=== PATIENT | male | born 1965 | race Hispanic/Latino ===

== ENCOUNTER 2019-01-11 23:19 | Emergency (ER) | payer OTHER ==
[~2019-01-11] VITALS: Ht 177.8 cm; Wt 95.3 kg
[2019-01-11] MEDS ORDERED: SODIUM CHLORIDE 0.9% 1000ML 2,000 ML ONE (23:39)
[2019-01-11] MEDS ORDERED: LORAZEPAM INJ 2 MG/ML VIAL ONE (23:39)
[2019-01-11] MEDS ORDERED: ONDANSETRON HCL INJ 2MG/ML 2ML 2 MG/ML VIAL ONE (23:39)
[2019-01-11] MEDS ORDERED: FAMOTIDINE 20 MG/2 ML VIAL IV STA (23:58)
[2019-01-12] MEDS ORDERED: ONDANSETRON HCL INJ 2MG/ML 2ML 2 MG/ML VIAL IV STA (00:07)
[2019-01-12] MEDS ORDERED: SODIUM CHLORIDE 0.9% 100 ML 100 ML IV ONE ×2 (00:15→03:30)
[2019-01-12] MEDS ORDERED: LORAZEPAM INJ 2 MG/ML VIAL IV ONE ×2 (00:15→03:30)
[2019-01-12] MEDS ORDERED: SODIUM CHLORIDE 0.9% 1000ML 1,000 ML IV ONE (00:15)
[2019-01-12] MEDS ORDERED: POTASSIUM CHLORIDE 20 MEQ TAB CR PO STA (01:08)
--- NOTE | 2019-01-12 01:26 | NUR ---
no nausea,vomiting or diarrhea noted at this time. pt resting in room with at bedside.
--- NOTE | 2019-01-12 02:25 | NUR ---
pr placed on engine monitor. at bedside pt denies CP, SOB. no vomiting noted.
--- NOTE | 2019-01-12 02:39 | Diagnostic Imaging Report ---
EXAM: Right Upper Quadrant Ultrasound INDICATION: Right upper quadrant pain. Binge drinking. COMPARISON: None. TECHNIQUE: Transverse and longitudinal images of the right upper abdomen were obtained. FINDINGS: Liver: Size: 20.2 cm in the right midclavicular line, normal Appearance: Increased echogenicity, smooth contour Mass: No focal masses Gallbladder: The gallbladder is mildly hydropic. Stones/Sludge: Small volume sludge. Wall: 0.4 cm, mildly thickened Appearance: No wall thickening, pericholecystic fluid or hydrops. Sonographic Swanson's Sign: Negative Bile Ducts: Intrahepatic Ducts: No dilatation Extrahepatic Ducts: Common bile duct measures 0.7 cm, mildly prominent. Pancreas: Visualized portions of the pancreatic head, neck and proximal body are normal. Kidneys: Length: Right 11.2 cm Echogenicity: Normal Collecting System: No hydronephrosis Stone: None Cyst/Mass: None Vessels: Aorta: Visualized portions are normal Inferior Vena Cava: Visualized portions are normal Main Portal Vein: 1.2 cm, normal size with hepatopetal flow. Free Fluid: No ascites or pleural effusion IMPRESSION: 1. Hydropic gallbladder with mild diffuse wall thickening, and sludge. Findings are nonspecific, however, could reflect cholecystitis in the proper clinical setting (Negative sonographic Swanson's sign). 2. Hepatomegaly and hepatic steatosis. Signed by: Dr. Cata Jose M.D. on 01/12/2019 2:36 AM
[2019-01-12] MEDS ORDERED: THIAMINE HCL INJ 100 MG/ML 2ML VIAL IV ONE (03:15)
[2019-01-12] MEDS ORDERED: THIAMINE HCL INJ 100 MG/ML 2ML VIAL ONE (03:18)
[2019-01-12] MEDS ORDERED: DILTIAZEM HCL 5 MG/ML 5 ML VIAL IV STA (03:32)
[2019-01-12] MEDS ORDERED: MAGNESIUM SULFATE 2GM/50ML 50 ML IV ONE ×2 (03:33→04:30)
[2019-01-12] MEDS ORDERED: SODIUM CHLORIDE 0.9% 1000ML 1,000 ML ONE (03:33)
--- NOTE | 2019-01-12 03:35 | NUR ---
Mag 2gm nfusing at 100cc/hr verbal order from Dr Jo.
[2019-01-12] MEDS ORDERED: DILTIAZEM HCL 125 ML IV SCH (03:45)
[2019-01-12] MEDS ORDERED: NICARDIPINE 20MG/200ML PREMIX 0 ML ONE (03:57)
[2019-01-12] MEDS ORDERED: DILTIAZEM HCL VIAL 5 ML ONE (03:57)
[2019-01-12] MEDS ORDERED: DILTIAZEM HCL ONE (04:01)
[2019-01-12] MEDS ORDERED: SODIUM CHLORIDE 0.9% 100 ML 100 ML ONE (04:02)
[2019-01-12] MEDS ORDERED: LORAZEPAM INJ 2 MG/ML VIAL ONE (04:24)
--- NOTE | 2019-01-12 04:33 | NUR ---
[facility] notified of emergency transfer, ETA 30 minutes
--- NOTE | 2019-01-12 04:40 | Diagnostic Imaging Report ---
EXAMINATION: CXR 1 VIEW - HOPD INDICATION: Tachycardia. COMPARISON: None FINDINGS: TUBES and LINES: None. LUNGS: Lungs are well inflated. Mild patchy density in the right lower lobe may represent atelectasis. There is no evidence of pneumonia or pulmonary edema. PLEURA: No pleural effusion or pneumothorax. HEART AND MEDIASTINUM: The cardiomediastinal silhouette is unremarkable. BONES AND SOFT TISSUES: No acute osseous lesion. UPPER ABDOMEN: No free air under the diaphragm. IMPRESSION: Right basilar atelectasis. Signed by: Dr. Cata Jose M.D. on 01/12/2019 4:37 AM
--- NOTE | 2019-01-12 05:30 | NUR ---
report to EMS. pt stable at time of transfer. MOT and packet given to EMS, MOT and FS faxed to transfer center and [facility].
[2019-01-12 06:09] VITALS: BP 110/72
== END 2019-01-12 06:29 | disposition other institution (70) ==
LOC: FSED 23:19
DX: K70.30 Alcoholic cirrhosis of liver without ascites (principal); E87.6 Hypokalemia; K52.9 Noninfective gastroenteritis and colitis, unspecified; E87.1 Hypo-osmolality and hyponatremia; I48.91 Unspecified atrial fibrillation; F17.210 Nicotine dependence, cigarettes, uncomplicated
CPT/HCPCS: 71045; 76705; 80048; 80053; 80076; 81003; 83880; 84484; 85025; 93005; 96365; 96374; 96375; 99284; J2060; J2405; J3411; J3475; J7030

== ENCOUNTER 2019-04-19 02:19 | Emergency (ER) | payer OTHER ==
[~2019-04-19] VITALS: Ht 177.8 cm; Wt 95.3 kg
--- OUTSIDE RECORDS SUMMARY | 2019-04-19 02:22 | XMS REPORT ---
Author Author [facility] Address Unknown Phone Unavailable Care Team Providers Care Supply Chain Planner Name Role Phone ELIZABETH RAMIREZ Unavailable Unavailable Didi STODDARD Unavailable Unavailable Problems This patient has no known problems. Allergies, Adverse Reactions, Alerts This patient has no known allergies or adverse reactions. Medications This patient has no known medications. Results Test Description Test Time Test Comments Text Results Atomic Results Result Comments POCT-GLUCOSE METER 2019-01-17 11:38:00 POC-GLUCOSE METER (BEAKER) (test acyq=1430) 152 mg/dL 70-110 TESTED AT [facility] [address] [facility] [address] [address] [id number] 10:46:00* Test Item Value Reference Range Comments PARTIAL THROMBOPLASTIN TIME (BEAKER) (test ofok=376) 73.4 seconds 22.5-36.0 CBC W/PLT COUNT & AUTO [id number] 08:41:00* Test Item Value Reference Range Comments WHITE BLOOD CELL COUNT (BEAKER) (test lafj=783) 7.4 K/ L 3.5-10.5 RED BLOOD CELL COUNT (BEAKER) (test nwxt=847) 3.71 M/ L 4.63-6.08 HEMOGLOBIN (BEAKER) (test syuw=320) 11.1 GM/DL 13.7-17.5 HEMATOCRIT (BEAKER) (test btnz=964) 30.7 % 40.1-51.0 MEAN CORPUSCULAR VOLUME (BEAKER) (test kyzn=912) 82.7 fL 79.0-92.2 MEAN CORPUSCULAR HEMOGLOBIN (BEAKER) (test yrof=062) 29.9 pg 25.7-32.2 MEAN CORPUSCULAR HEMOGLOBIN CONC (BEAKER) (test khss=038) 36.2 GM/DL 32.3-36.5 RED CELL DISTRIBUTION WIDTH (BEAKER) (test osuu=820) 20.2 % 11.6-14.4 PLATELET COUNT (BEAKER) (test xjov=959) 120 K/CU MM 150-450 MEAN PLATELET VOLUME (BEAKER) (test inzc=593) 10.1 fL 9.4-12.4 NUCLEATED RED BLOOD CELLS (BEAKER) (test fbir=652) 1 /100 WBC 0-0 (CELLAVISION MANUAL DIFF)2019-01-17 08:41:00* Test Item Value Reference Range Comments NEUTROPHILS - REL (CELLAVISION)(BEAKER) (test xfxx=9127) 70 % LYMPHOCYTES - REL (CELLAVISION)(BEAKER) (test bofp=6849) 16 % MONOCYTES - REL (CELLAVISION)(BEAKER) (test jerz=3759) 10 % EOSINOPHILS - REL (CELLAVISION)(BEAKER) (test vqjo=1172) 1 % METAMYELOCYTES - REL (CELLAVISION)(BEAKER) (test sdyb=1865) 1 % 0-0 PROMYELOCYTES - REL (CELLAVSION)(BEAKER) (test dttk=5881) 1 % 0-0 BANDS - REL (CELLAVISION)(BEAKER) (test lyyl=4264) 1 % 0-10 NEUTROPHILS - ABS (CELLAVISION)(BEAKER) (test htzi=7394) 5.18 K/ul 1.78-5.38 LYMPHOCYTES - ABS (CELLAVISION)(BEAKER) (test cbjb=2624) 1.18 K/ul 1.32-3.57 MONOCYTES - ABS (CELLAVISION)(BEAKER) (test gakn=1503) 0.74 K/uL 0.30-0.82 EOSINOPHILS - ABS (CELLAVISION)(BEAKER) (test evwh=4442) 0.07 K/uL 0.04-0.54 METAMYELOCYTES - ABS (CELLAVISION)(BEAKER) (test ppmr=5658) 0.07 K/uL 0.00-0.00 PROMYELOCYTES - ABS (CELLAVISION)(BEAKER) (test stqf=3738) 0.07 K/uL 0.00-0.00 BANDS - ABS (CELLAVISION)(BEAKER) (test iosw=6120) 0.07 K/uL 0.00-0.80 TOTAL COUNTED (BEAKER) (test unjn=2454) 100 SMUDGE CELLS (BEAKER) (test ojmn=5887) Present GIANT PLATELETS (BEAKER) (test ynra=313) Present POLYCHROMATOPHILLIC RBCS(BEAKER) (test lfrx=720) 1+ few ANISOCYTOSIS (BEAKER) (test ozoa=780) 2+ moderate MACROCYTES (BEAKER) (test jfzp=551) 2+ moderate TARGET CELLS (BEAKER) (test aeju=085) 1+ few PLATELET CONCENTRATION (CELLAVISION)(BEAKER) (test ohxy=1355) Decreased Received comment: User comments: Slide comments: POCT-GLUCOSE [id number] 06:19:00* Test Item Value Reference Range Comments POC-GLUCOSE METER (BEAKER) (test feil=3886) 193 mg/dL 70-110 TESTED AT [facility] [address] [place] [address] [id number] 04:55:00* Test Item Value Reference Range Comments MAGNESIUM (BEAKER) (test unvs=890) 2.1 mg/dL 1.6-2.6 Specimen slightly hemolyzed [id number] 04:55:00* Test Item Value Reference Range Comments PHOSPHORUS (BEAKER) (test ozas=213) 1.8 mg/dL 2.3-4.7 Specimen slightly hemolyzed COMPREHENSIVE METABOLIC [id number] 04:55:00* Test Item Value Reference Range Comments TOTAL PROTEIN (BEAKER) (test caca=633) 5.9 gm/dL 6.0-8.3 Specimen slightly hemolyzed ALBUMIN (BEAKER) (test zdjh=2187) 2.5 g/dL 3.5-5.0 Specimen slightly hemolyzed ALKALINE PHOSPHATASE (BEAKER) (test mspm=932) 370 U/L 40-150 BILIRUBIN TOTAL (BEAKER) (test toqi=959) 14.4 mg/dL 0.2-1.2 Specimen slightly hemolyzed SODIUM (BEAKER) (test gtzv=394) 138 meq/L 136-145 POTASSIUM (BEAKER) (test gzyq=697) 4.1 meq/L 3.5-5.1 Specimen slightly hemolyzed CHLORIDE (BEAKER) (test zkdc=898) 106 meq/L 98-107 CO2 (BEAKER) (test cibb=068) 24 meq/L 22-29 BLOOD UREA NITROGEN (BEAKER) (test ipgc=705) 3 mg/dL 7-21 CREATININE (BEAKER) (test wjuz=645) 0.71 mg/dL 0.57-1.25 Specimen slightly hemolyzed GLUCOSE RANDOM (BEAKER) (test flsf=231) 135 mg/dL 70-105 CALCIUM (BEAKER) (test orqk=579) 8.1 mg/dL 8.4-10.2 AST (SGOT) (BEAKER) (test ctjv=935) 99 U/L 5-34 Specimen slightly hemolyzed ALT (SGPT) (BEAKER) (test xrnw=724) 68 U/L 6-55 Specimen slightly hemolyzed EGFR (BEAKER) (test esmv=2389) 117 mL/min/1.73 sq m ESTIMATED GFR IS NOT ACCURATE CREATININE CLEARANCE IN PREDICTING GLOMERULAR FILTRATION RATE. ESTIMATED GFR IS NOT APPLICABLE FOR DIALYSIS PATIENTS. Specimen markedly [id number] 04:55:00* Test Item Value Reference Range Comments AMYLASE (BEAKER) (test tazj=217) 187 U/L 25-125 Specimen slightly hemolyzed Specimen markedly [id number] 04:55:00* Test Item Value Reference Range Comments LIPASE (BEAKER) (test byqq=441) 249 U/L 8-78 Specimen markedly [id number] 04:41:00* Test Item Value Reference Range Comments PARTIAL THROMBOPLASTIN TIME (BEAKER) (test deni=352) 68.9 seconds 22.5-36.0 [id number] 21:11:00* Test Item Value Reference Range Comments PARTIAL THROMBOPLASTIN TIME (BEAKER) (test eyhy=498) 56.6 seconds 22.5-36.0 POCT-GLUCOSE [id number] 17:33:00* Test Item Value Reference Range Comments POC-GLUCOSE METER (BEAKER) (test ksur=7671) 164 mg/dL 70-110 TESTED AT [facility] [address] [address] [id number] 14:01:00* Test Item Value Reference Range Comments PARTIAL THROMBOPLASTIN TIME (BEAKER) (test wvgj=497) 59.0 seconds 22.5-36.0 POCT-GLUCOSE [id number] 12:26:00* Test Item Value Reference Range Comments POC-GLUCOSE METER (BEAKER) (test qato=4247) 187 mg/dL 70-110 TESTED AT [facility] [address] [facility] [facility] [address] [id number] 07:58:00* Test Item Value Reference Range Comments MAGNESIUM (BEAKER) (test kpbv=451) 2.1 mg/dL 1.6-2.6 Specimen slightly hemolyzed [id number] 07:58:00* Test Item Value Reference Range Comments PHOSPHORUS (BEAKER) (test rgyo=272) 1.7 mg/dL 2.3-4.7 Specimen slightly hemolyzed COMPREHENSIVE METABOLIC [id number] 07:58:00* Test Item Value Reference Range Comments TOTAL PROTEIN (BEAKER) (test svql=750) 5.8 gm/dL 6.0-8.3 Specimen slightly hemolyzed ALBUMIN (BEAKER) (test tixb=3832) 2.5 g/dL 3.5-5.0 Specimen slightly hemolyzed ALKALINE PHOSPHATASE (BEAKER) (test ikvn=093) 391 U/L 40-150 BILIRUBIN TOTAL (BEAKER) (test kzso=573) 18.4 mg/dL 0.2-1.2 Specimen slightly hemolyzed SODIUM (BEAKER) (test fyvm=851) 135 meq/L 136-145 POTASSIUM (BEAKER) (test iras=167) 4.1 meq/L 3.5-5.1 Specimen slightly hemolyzed CHLORIDE (BEAKER) (test wkbb=281) 105 meq/L 98-107 CO2 (BEAKER) (test wlwy=099) 22 meq/L 22-29 BLOOD UREA NITROGEN (BEAKER) (test uana=608) 5 mg/dL 7-21 CREATININE (BEAKER) (test vdnn=041) 0.70 mg/dL 0.57-1.25 Specimen slightly hemolyzed GLUCOSE RANDOM (BEAKER) (test mxwq=983) 172 mg/dL 70-105 CALCIUM (BEAKER) (test rzzq=519) 8.0 mg/dL 8.4-10.2 AST (SGOT) (BEAKER) (test gleu=666) 134 U/L 5-34 Specimen slightly hemolyzed ALT (SGPT) (BEAKER) (test zite=236) 76 U/L 6-55 Specimen slightly hemolyzed EGFR (BEAKER) (test jqew=7922) 119 mL/min/1.73 sq m ESTIMATED GFR IS NOT ACCURATE CREATININE CLEARANCE IN PREDICTING GLOMERULAR FILTRATION RATE. ESTIMATED GFR IS NOT APPLICABLE FOR DIALYSIS PATIENTS. Specimen markedly [id number] 07:58:00* Test Item Value Reference Range Comments AMYLASE (BEAKER) (test bqqp=076) 165 U/L 25-125 Specimen slightly hemolyzed Specimen markedly [id number] 07:58:00* Test Item Value Reference Range Comments LIPASE (BEAKER) (test ytap=321) 230 U/L 8-78 Specimen markedly ictericPOCT-GLUCOSE [id number] 07:55:00* Test Item Value Reference Range Comments POC-GLUCOSE METER (BEAKER) (test bfbb=0070) 191 mg/dL 70-110 TESTED AT [facility] [address] [facility] [address] CBC W/PLT COUNT & AUTO [id number] 07:44:00* Test Item Value Reference Range Comments WHITE BLOOD CELL COUNT (BEAKER) (test mgsc=535) 6.0 K/ L 3.5-10.5 RED BLOOD CELL COUNT (BEAKER) (test ynrm=595) 3.88 M/ L 4.63-6.08 HEMOGLOBIN (BEAKER) (test ecwl=438) 11.2 GM/DL 13.7-17.5 HEMATOCRIT (BEAKER) (test kpao=862) 32.0 % 40.1-51.0 MEAN CORPUSCULAR VOLUME (BEAKER) (test usps=017) 82.5 fL 79.0-92.2 MEAN CORPUSCULAR HEMOGLOBIN (BEAKER) (test ugce=754) 28.9 pg 25.7-32.2 MEAN CORPUSCULAR HEMOGLOBIN CONC (BEAKER) (test wtku=586) 35.0 GM/DL 32.3-36.5 RED CELL DISTRIBUTION WIDTH (BEAKER) (test iruc=460) 19.6 % 11.6-14.4 PLATELET COUNT (BEAKER) (test xwdy=557) 83 K/CU MM 150-450 MEAN PLATELET VOLUME (BEAKER) (test apqm=605) 10.5 fL 9.4-12.4 NUCLEATED RED BLOOD CELLS (BEAKER) (test qcax=821) 1 /100 WBC 0-0 NEUTROPHILS RELATIVE PERCENT (BEAKER) (test uoop=382) 74 % LYMPHOCYTES RELATIVE PERCENT (BEAKER) (test lsfm=595) 14 % MONOCYTES RELATIVE PERCENT (BEAKER) (test ipwm=400) 7 % EOSINOPHILS RELATIVE PERCENT (BEAKER) (test sxqf=627) 0 % BASOPHILS RELATIVE PERCENT (BEAKER) (test wrnp=180) 1 % NEUTROPHILS ABSOLUTE COUNT (BEAKER) (test taxb=919) 4.40 K/ L 1.78-5.38 LYMPHOCYTES ABSOLUTE COUNT (BEAKER) (test ilzl=454) 0.83 K/ L 1.32-3.57 MONOCYTES ABSOLUTE COUNT (BEAKER) (test upgc=278) 0.39 K/ L 0.30-0.82 EOSINOPHILS ABSOLUTE COUNT (BEAKER) (test ntpz=874) 0.01 K/ L 0.04-0.54 BASOPHILS ABSOLUTE COUNT (BEAKER) (test ngpl=494) 0.03 K/ L 0.01-0.08 IMMATURE GRANULOCYTES-RELATIVE PERCENT (BEAKER) (test kcsj=7685) 5 % 0-1 [id number] 07:12:00* Test Item Value Reference Range Comments PARTIAL THROMBOPLASTIN TIME (BEAKER) (test bses=452) 33.8 seconds 22.5-36.0 6 hours after starting heparin infusion and as indicated per sliding scale PLATELET [id number] 06:51:00* Test Item Value Reference Range Comments PLATELET COUNT (BEAKER) (test lwcx=850) 83 K/CU MM 150-450 [place], [id number] 20:05:00Intra-op imagingReason for exam:->direct hyperbilirubinemiaFINAL REPORT Fluoroscopy, less than 1 hour History:ERCP Comparison: none Findings:Fluoroscopic assistance was provided during ERCP. Fluoroscopic images taken were interpreted by the referring clinician. Please see separate procedure note for full details. Total Fluoroscopy time: 63.1 seconds Number of fluoroscopic images obtained: Two Impression:Fluoroscopy assistance as described above. Signed: Coy Glaser MDReport Verified Date/Time: 01/15/2019 20:05:50 Reading Location: [facility] Reading Room [id number] 09:50:00* Test Item Value Reference Range Comments MAGNESIUM (BEAKER) (test kijt=653) 2.0 mg/dL 1.6-2.6 Specimen slightly hemolyzed [id number] 09:50:00* Test Item Value Reference Range Comments PHOSPHORUS (BEAKER) (test tekw=297) 1.8 mg/dL 2.3-4.7 Specimen slightly hemolyzed POCT-GLUCOSE [id number] 06:44:00* Test Item Value Reference Range Comments POC-GLUCOSE METER (BEAKER) (test pobk=2787) 104 mg/dL 70-110 TESTED AT [facility] [address] [facility] [address] BASIC METABOLIC [id number] 04:31:00* Test Item Value Reference Range Comments SODIUM (BEAKER) (test aypd=732) 132 meq/L 136-145 POTASSIUM (BEAKER) (test zjoc=294) 3.7 meq/L 3.5-5.1 Specimen slightly hemolyzed CHLORIDE (BEAKER) (test gqrm=129) 102 meq/L 98-107 CO2 (BEAKER) (test sunn=218) 22 meq/L 22-29 BLOOD UREA NITROGEN (BEAKER) (test erop=588) 5 mg/dL 7-21 CREATININE (BEAKER) (test snmv=658) 0.70 mg/dL 0.57-1.25 Specimen slightly hemolyzed GLUCOSE RANDOM (BEAKER) (test lovk=056) 99 mg/dL 70-105 CALCIUM (BEAKER) (test phhj=601) 7.4 mg/dL 8.4-10.2 EGFR (BEAKER) (test wagn=9525) 119 mL/min/1.73 sq m ESTIMATED GFR IS NOT ACCURATE CREATININE CLEARANCE IN PREDICTING GLOMERULAR FILTRATION RATE. ESTIMATED GFR IS NOT APPLICABLE FOR DIALYSIS PATIENTS. Specimen markedly [id number] 04:29:00* Test Item Value Reference Range Comments AMYLASE (BEAKER) (test syxg=334) 186 U/L 25-125 Specimen slightly hemolyzed Specimen markedly ictericHEPATIC FUNCTION [id number] 04:29:00* Test Item Value Reference Range Comments TOTAL PROTEIN (BEAKER) (test xlqj=677) 5.0 gm/dL 6.0-8.3 Specimen slightly hemolyzed ALBUMIN (BEAKER) (test cvsu=6286) 2.2 g/dL 3.5-5.0 Specimen slightly hemolyzed BILIRUBIN TOTAL (BEAKER) (test efch=114) 17.5 mg/dL 0.2-1.2 Specimen slightly hemolyzed BILIRUBIN DIRECT (BEAKER) (test krph=487) 12.5 mg/dL 0.1-0.5 Specimen slightly hemolyzed ALKALINE PHOSPHATASE (BEAKER) (test timl=761) 352 U/L 40-150 AST (SGOT) (BEAKER) (test ualj=835) 129 U/L 5-34 Specimen slightly hemolyzed ALT (SGPT) (BEAKER) (test kpjs=837) 68 U/L 6-55 Specimen slightly hemolyzed Specimen markedly [id number] 04:29:00* Test Item Value Reference Range Comments LIPASE (BEAKER) (test hite=408) 358 U/L 8-78 Specimen markedly [id number] 03:59:00* Test Item Value Reference Range Comments PARTIAL THROMBOPLASTIN TIME (BEAKER) (test gcfp=249) 94.9 seconds 22.5-36.0 POCT-GLUCOSE [id number] 01:11:00* Test Item Value Reference Range Comments POC-GLUCOSE METER (BEAKER) (test gelm=8823) 113 mg/dL 70-110 TESTED AT [facility] [address] [facility] [address] [id number] 20:50:00* Test Item Value Reference Range Comments PARTIAL THROMBOPLASTIN TIME (BEAKER) (test qadk=827) 87.5 seconds 22.5-36.0 [id number] 14:15:00* Test Item Value Reference Range Comments PROTIME (BEAKER) (test dfdp=173) 14.5 seconds 11.9-14.2 INR (BEAKER) (test rtol=760) 1.2 <=5.9 PARTIAL THROMBOPLASTIN TIME (BEAKER) (test upsu=915) 95.5 seconds 22.5-36.0 Effective 11/04/2018: PT Reference Range ChangeNew: 11.9-14.2 Previous: 11.7-14. 7RECOMMENDED COUMADIN/WARFARIN INR THERAPY RANGESSTANDARD DOSE: 2.0-3.0 Include s: PROPHYLAXIS for venous thrombosis, systemic embolization; TREATMENT for venou s thrombosis and/or pulmonary embolus.HIGH RISK: Target INR is 2.5-3.5 for patie nts wiht mechanical heart valves.POCT-GLUCOSE [id number] 12:18:00* Test Item Value Reference Range Comments POC-GLUCOSE METER (BEAKER) (test oxum=4216) 111 mg/dL 70-110 TESTED AT [facility] [address] [facility] [address] (CELLAVISION MANUAL DIFF)2019-01-14 07:59:00* Test Item Value Reference Range Comments NEUTROPHILS - REL (CELLAVISION)(BEAKER) (test bjpv=8387) 84 % LYMPHOCYTES - REL (CELLAVISION)(BEAKER) (test qsoh=7925) 10 % MONOCYTES - REL (CELLAVISION)(BEAKER) (test iegv=0990) 2 % EOSINOPHILS - REL (CELLAVISION)(BEAKER) (test olww=3154) 1 % BANDS - REL (CELLAVISION)(BEAKER) (test lyci=2726) 3 % 0-10 NEUTROPHILS - ABS (CELLAVISION)(BEAKER) (test vlfz=4301) 5.63 K/ul 1.78-5.38 LYMPHOCYTES - ABS (CELLAVISION)(BEAKER) (test zpdn=2404) 0.67 K/ul 1.32-3.57 MONOCYTES - ABS (CELLAVISION)(BEAKER) (test blxy=9243) 0.13 K/uL 0.30-0.82 EOSINOPHILS - ABS (CELLAVISION)(BEAKER) (test jiak=0774) 0.07 K/uL 0.04-0.54 BANDS - ABS (CELLAVISION)(BEAKER) (test qlmq=7036) 0.20 K/uL 0.00-0.80 TOTAL COUNTED (BEAKER) (test ymmg=4749) 100 WBC MORPHOLOGY (BEAKER) (test vcdi=554) Normal PLT MORPHOLOGY (BEAKER) (test gugp=857) Normal TARGET CELLS (BEAKER) (test bzys=261) 1+ few BASOPHILIC STIPPLING (BEAKER) (test dkns=408) Present ARTIFACT (CELLAVISION)(BEAKER) (test ddlq=0405) Present PLATELET CONCENTRATION (CELLAVISION)(BEAKER) (test dzmv=7341) Decreased Received comment: User comments: Slide comments: PT/[id number] 07:40:00* Test Item Value Reference Range Comments PROTIME (BEAKER) (test szwd=234) 14.5 seconds 11.9-14.2 INR (BEAKER) (test urlr=604) 1.2 <=5.9 PARTIAL THROMBOPLASTIN TIME (BEAKER) (test gspo=152) 75.3 seconds 22.5-36.0 Effective 11/04/2018: PT Reference Range ChangeNew: 11.9-14.2 Previous: 11.7-14. 7RECOMMENDED COUMADIN/WARFARIN INR THERAPY RANGESSTANDARD DOSE: 2.0-3.0 Include s: PROPHYLAXIS for venous thrombosis, systemic embolization; TREATMENT for venou s thrombosis and/or pulmonary embolus.HIGH RISK: Target INR is 2.5-3.5 for patie nts wiht mechanical heart valves.POCT-GLUCOSE [id number] 06:21:00* Test Item Value Reference Range Comments POC-GLUCOSE METER (BEAKER) (test fnnt=6923) 101 mg/dL 70-110 TESTED AT [facility] [address] [facility] [address] [address] BASIC METABOLIC [id number] 04:56:00* Test Item Value Reference Range Comments SODIUM (BEAKER) (test gcmj=005) 131 meq/L 136-145 POTASSIUM (BEAKER) (test spke=960) 3.4 meq/L 3.5-5.1 CHLORIDE (BEAKER) (test fzsd=265) 101 meq/L 98-107 CO2 (BEAKER) (test lmlk=359) 22 meq/L 22-29 BLOOD UREA NITROGEN (BEAKER) (test npua=547) 5 mg/dL 7-21 CREATININE (BEAKER) (test coco=788) 0.78 mg/dL 0.57-1.25 GLUCOSE RANDOM (BEAKER) (test xxnz=431) 103 mg/dL 70-105 CALCIUM (BEAKER) (test lrzn=846) 7.4 mg/dL 8.4-10.2 EGFR (BEAKER) (test rkeq=1913) 105 mL/min/1.73 sq m ESTIMATED GFR IS NOT ACCURATE CREATININE CLEARANCE IN PREDICTING GLOMERULAR FILTRATION RATE. ESTIMATED GFR IS NOT APPLICABLE FOR DIALYSIS PATIENTS. Specimen markedly [id number] 04:43:00* Test Item Value Reference Range Comments PHOSPHORUS (BEAKER) (test tjvz=034) 2.3 mg/dL 2.3-4.7 [id number] 04:43:00* Test Item Value Reference Range Comments MAGNESIUM (BEAKER) (test woby=605) 2.1 mg/dL 1.6-2.6 HEPATIC FUNCTION [id number] 04:43:00* Test Item Value Reference Range Comments TOTAL PROTEIN (BEAKER) (test gujh=722) 5.0 gm/dL 6.0-8.3 ALBUMIN (BEAKER) (test byrs=1489) 2.2 g/dL 3.5-5.0 BILIRUBIN TOTAL (BEAKER) (test owcr=229) 16.7 mg/dL 0.2-1.2 BILIRUBIN DIRECT (BEAKER) (test jxif=041) 12.1 mg/dL 0.1-0.5 ALKALINE PHOSPHATASE (BEAKER) (test ezgk=215) 378 U/L 40-150 AST (SGOT) (BEAKER) (test hpss=249) 154 U/L 5-34 ALT (SGPT) (BEAKER) (test pktc=751) 75 U/L 6-55 Specimen markedly [id number] 04:43:00* Test Item Value Reference Range Comments AMYLASE (BEAKER) (test ulcy=454) 169 U/L 25-125 Specimen markedly [id number] 04:43:00* Test Item Value Reference Range Comments LIPASE (BEAKER) (test qlez=140) 323 U/L 8-78 Specimen markedly ictericCBC W/PLT COUNT & AUTO [id number] 04:02:00 * Test Item Value Reference Range Comments WHITE BLOOD CELL COUNT (BEAKER) (test ggzg=325) 6.7 K/ L 3.5-10.5 RED BLOOD CELL COUNT (BEAKER) (test mtta=459) 3.93 M/ L 4.63-6.08 HEMOGLOBIN (BEAKER) (test bgkj=386) 11.4 GM/DL 13.7-17.5 HEMATOCRIT (BEAKER) (test bttf=459) 31.5 % 40.1-51.0 MEAN CORPUSCULAR VOLUME (BEAKER) (test nizu=818) 80.2 fL 79.0-92.2 MEAN CORPUSCULAR HEMOGLOBIN (BEAKER) (test tvri=884) 29.0 pg 25.7-32.2 MEAN CORPUSCULAR HEMOGLOBIN CONC (BEAKER) (test jqgm=858) 36.2 GM/DL 32.3-36.5 RED CELL DISTRIBUTION WIDTH (BEAKER) (test ldob=052) 18.5 % 11.6-14.4 PLATELET COUNT (BEAKER) (test iwbe=776) 51 K/CU MM 150-450 MEAN PLATELET VOLUME (BEAKER) (test exan=462) 10.6 fL 9.4-12.4 NUCLEATED RED BLOOD CELLS (BEAKER) (test fpwg=699) 0 /100 WBC 0-0 PT/[id number] 02:44:00* Test Item Value Reference Range Comments PROTIME (BEAKER) (test pymv=925) 14.3 seconds 11.9-14.2 INR (BEAKER) (test dgfx=369) 1.2 <=5.9 PARTIAL THROMBOPLASTIN TIME (BEAKER) (test zrzo=426) 42.6 seconds 22.5-36.0 Effective 11/04/2018: PT Reference Range ChangeNew: 11.9-14.2 Previous: 11.7-14. 7RECOMMENDED COUMADIN/WARFARIN INR THERAPY RANGESSTANDARD DOSE: 2.0-3.0 Include s: PROPHYLAXIS for venous thrombosis, systemic embolization; TREATMENT for venou s thrombosis and/or pulmonary embolus.HIGH RISK: Target INR is 2.5-3.5 for patie nts wiht mechanical heart valves.PROTHROMBIN TIME/[id number] 02:43:00* Test Item Value Reference Range Comments PROTIME (BEAKER) (test cbqj=343) 14.3 seconds 11.9-14.2 INR (BEAKER) (test pect=414) 1.2 <=5.9 Effective 11/04/2018: PT Reference Range ChangeNew: 11.9-14.2 Previous: 11.7-14. 7RECOMMENDED COUMADIN/WARFARIN INR THERAPY RANGESSTANDARD DOSE: 2.0-3.0 Include s: PROPHYLAXIS for venous thrombosis, systemic embolization; TREATMENT for venou s thrombosis and/or pulmonary embolus.HIGH RISK: Target INR is 2.5-3.5 for patie nts wiht mechanical heart valves.POCT-GLUCOSE [id number] 01:58:00* Test Item Value Reference Range Comments POC-GLUCOSE METER (BEAKER) (test uqib=0023) 92 mg/dL 70-110 TESTED AT [facility] [address] [address] PT/[id number] 21:33:00* Test Item Value Reference Range Comments PROTIME (BEAKER) (test udze=109) 14.8 seconds 11.9-14.2 INR (BEAKER) (test xebz=461) 1.2 <=5.9 PARTIAL THROMBOPLASTIN TIME (BEAKER) (test hnqy=699) 90.8 seconds 22.5-36.0 Effective 11/04/2018: PT Reference Range ChangeNew: 11.9-14.2 Previous: 11.7-14. 7RECOMMENDED COUMADIN/WARFARIN INR THERAPY RANGESSTANDARD DOSE: 2.0-3.0 Include s: PROPHYLAXIS for venous thrombosis, systemic embolization; TREATMENT for venou s thrombosis and/or pulmonary embolus.HIGH RISK: Target INR is 2.5-3.5 for patie nts wiht mechanical heart valves.OCCULT BLOOD, [id number] 19:14:00* Test Item Value Reference Range Comments FECAL OCCULT BLOOD (BEAKER) (test fdka=023) Negative Negative MR, ABDOMEN, [id number] 18:55:00cFINAL REPORT TECHNIQUE: MRI of the abdomen and MRCP WITHOUT intravenous contrast. 3-D volume reconstructions were obtained to evaluate the biliary ductal system. INDICATION: Abnormal liver function tests (LFTs). COMPARISON: HIDA and ultrasound from 01/12/2019. FINDINGS: ABSENCE OF INTRAVENOUS CONTRAST DECREASES SENSITIVITY FOR DETECTION OF FOCAL LESIONS AND VASCULAR PATHOLOGY. LOWER THORAX: Trace right pleural effusion. LIVER: Marked loss of signal in the liver on out of phase imaging. No focal hepatic lesions. BILIARY: The gallbladder contains layering material which is hyperintense on T1-weighted imaging and hypointense on T2- weighted imaging. This is most likely a combination of sludge and stones. The gallbladder wall is mildly thickened, and the gallbladder is obtained 5.5 cm. No biliary ductal dilatation or filling defect. The common bile duct measures 0.6 cm in diameter. SPLEEN: No splenomegaly.PANCREAS: No focal masses or ductal dilatation. ADRENALS: No adrenal nodules.KIDNEYS/URETERS: No hydronephrosis or solid mass lesions. PERITONEUM/RETROPERITONEUM: There is trace free fluid along the paracolic gutters, more in the right paracolic gutter.LYMPH NODES: No lymphadenopathy.VESSELS: Unremarkable. GI TRACT: No distention or wall thic kening. BONES AND SOFT TISSUES: Unremarkable. IMPRESSION: 1.There are sludge an d stones in the gallbladder with a thickened gallbladder wall and distended gall bladder. In addition, there is perihepatic ascites. While these findings can be seen in acute cholecystitis, this is nonspecific given the liver dysfunction whi ch can also cause the gallbladder wall thickening and perihepatic ascites. 2.Sev ere diffuse fatty infiltration of the liver. Signed: Fazal Felder MDReport Verifarpita pugh Date/Time: 01/13/2019 18:55:18 Reading Location: [facility] C013Y CT Body Reading Room -GLUCOSE [id number] 18:53:00* Test Item Value Reference Range Comments POC-GLUCOSE METER (BEAKER) (test eukv=2407) 111 mg/dL 70-110 TESTED AT [facility] [address] [address] CBC W/PLT COUNT & AUTO [id number] 14:23:00* Test Item Value Reference Range Comments WHITE BLOOD CELL COUNT (BEAKER) (test vmsj=243) 7.8 K/ L 3.5-10.5 RED BLOOD CELL COUNT (BEAKER) (test xynv=439) 4.08 M/ L 4.63-6.08 HEMOGLOBIN (BEAKER) (test fyxg=586) 11.8 GM/DL 13.7-17.5 HEMATOCRIT (BEAKER) (test gtxv=785) 32.9 % 40.1-51.0 MEAN CORPUSCULAR VOLUME (BEAKER) (test llul=344) 80.6 fL 79.0-92.2 MEAN CORPUSCULAR HEMOGLOBIN (BEAKER) (test gewd=567) 28.9 pg 25.7-32.2 MEAN CORPUSCULAR HEMOGLOBIN CONC (BEAKER) (test lcie=049) 35.9 GM/DL 32.3-36.5 RED CELL DISTRIBUTION WIDTH (BEAKER) (test sgmo=056) 18.5 % 11.6-14.4 PLATELET COUNT (BEAKER) (test asni=637) 58 K/CU MM 150-450 MEAN PLATELET VOLUME (BEAKER) (test aasp=852) 11.2 fL 9.4-12.4 NUCLEATED RED BLOOD CELLS (BEAKER) (test kxur=583) 0 /100 WBC 0-0 (MANUAL DIFFERENTIAL)2019-01-13 14:23:00* Test Item Value Reference Range Comments NEUTROPHILS - REL (DIFF) (BEAKER) (test ojoz=9557) 79 % LYMPHOCYTES - REL (DIFF) (BEAKER) (test phil=7939) 11 % MONOCYTES - REL (DIFF) (BEAKER) (test hxhf=4934) 7 % EOSINOPHILS - REL (DIFF) (BEAKER) (test glub=8370) 2 % BASOPHILS - REL (DIFF) (BEAKER) (test lsbi=0474) 0 % BANDS - REL (DIFF) (BEAKER) (test tlja=0278) 1 % 0-10 NEUTROPHILS - ABS (DIFF) (BEAKER) (test zosr=5953) 6.16 K/ L 1.80-8.00 LYMPHOCYTES - ABS (DIFF) (BEAKER) (test lhed=6699) 0.86 K/ L 1.48-4.50 MONOCYTES - ABS (DIFF) (BEAKER) (test yybn=7874) 0.55 K/ L 0.00-1.30 EOSINOPHILS - ABS (DIFF) (BEAKER) (test spne=6703) 0.16 K/ L 0.00-0.50 BASOPHILS - ABS (DIFF) (BEAKER) (test ppvh=5525) 0.00 K/ L 0.00-0.20 BANDS-ABS (DIFF) (BEAKER) (test hprm=8791) 0.1 K/ L 0.0-0.8 TOTAL COUNTED (BEAKER) (test iidz=0032) 100 BANDS + SEGMENTED NEUTROPHILS (BEAKER) (test rfvb=3607) 6.24 WBC MORPHOLOGY (BEAKER) (test xqkk=630) Normal PLT MORPHOLOGY (BEAKER) (test ibcg=816) Normal ANISOCYTOSIS (BEAKER) (test szxq=187) 1+ few TARGET CELLS (BEAKER) (test hzun=569) 3+ many [id number] 12:13:00* Test Item Value Reference Range Comments PHOSPHORUS (BEAKER) (test pxqj=232) 1.4 mg/dL 2.3-4.7 [id number] 12:13:00* Test Item Value Reference Range Comments PARTIAL THROMBOPLASTIN TIME (BEAKER) (test outr=161) 97.8 seconds 22.5-36.0 [id number] 12:06:00* Test Item Value Reference Range Comments POTASSIUM (BEAKER) (test kyon=993) 3.4 meq/L 3.5-5.1 [id number] 12:06:00* Test Item Value Reference Range Comments MAGNESIUM (BEAKER) (test qdpa=598) 2.1 mg/dL 1.6-2.6 HEPATOBILIARY [id number] 11:33:00FINAL REPORT PROCEDURE: HEPATOBILIARY SCAN CPT CODE: 13225 INDICATION: follow up of known cholecystitis/cholangitis PROTOCOL: 8.7 mCi of Tc-99m mebrofenin was injected intravenously. Images of the upper abdomen were obtained for approximately 60 minutes after tracer injection. Additional images were obtained approximately 9 hours after tracer injection. FINDINGS: Initial tracer uptake into the liver is abnormal as the blood pool and vascular structures retain radiotracer after injection. There is abnormal tracer clearance from the liver with persistent tracer in the liver and blood pool 60 minutes after injection. The common bile duct, gallbladder, and small bowel are not visualized at 60 minutes after tracer injection. In addition, these structures are not visualized after 9 hours. IMPRESSION: There is diffuse hepatocellular dysfunction resulting in a nondiagnostic exam for acute thea cystitis. Signed: Anastacio Pinto MDReport Verified Date/Time: 01/13/2019 11:33:5 4 Reading Location: [address] [place] [address] Reading Room Electronically si gned by: ANASTACIO PINTO MD on 01/13/2019 11:33 AM ANTI-NUCLEAR ANTIBODY (SAVANNAH)2019-01-13 09:51:00* Test Item Value Reference Range Comments ANTI-NUCLEAR ANTIBODY (SAVANNAH) (BEAKER) (test xyjg=028) Negative Negative Test performed by IFA method.HEPATITIS A ANTIBODY, [id number] 08:20:00* Test Item Value Reference Range Comments HEPATITIS A IGG ANTIBODY (BEAKER) (test vpfy=6170) Reactive Nonreactive ALPHA FETOPROTEIN (AFP), TUMOR [id number] 08:11:00* Test Item Value Reference Range Comments ALPHA-FETOPROTEIN (BEAKER) (test hbed=0504) 4.4 ng/mL <10.0 HEPATITIS A ANTIBODY, [id number] 08:11:00* Test Item Value Reference Range Comments HEPATITIS A IGM ANTIBODY (BEAKER) (test djnx=759) Nonreactive Nonreactive HEPATITIS B CORE ANTIBODY, [id number] 08:11:00* Test Item Value Reference Range Comments HEPATITIS B CORE TOTAL ANTIBODY (BEAKER) (test saps=772) Nonreactive Nonreactive [id number] 08:05:00* Test Item Value Reference Range Comments FERRITIN (BEAKER) (test ukwo=554) 2889 ng/mL 5-275 HEPATITIS B SURFACE [id number] 07:27:00* Test Item Value Reference Range Comments HEPATITIS B SURFACE ANTIGEN (2) (BEAKER) (test yoya=5037) Nonreactive Nonreactive [id number] 06:41:00* Test Item Value Reference Range Comments PARTIAL THROMBOPLASTIN TIME (BEAKER) (test usap=721) 62.5 seconds 22.5-36.0 POCT-GLUCOSE [id number] 06:19:00* Test Item Value Reference Range Comments POC-GLUCOSE METER (BEAKER) (test hhno=5873) 121 mg/dL 70-110 TESTED AT [facility] [address] [place] [address] HEMOGLOBIN [id number] 06:14:00* Test Item Value Reference Range Comments HEMOGLOBIN A1C (BEAKER) (test qjav=844) 8.1 % 4.3-6.1 HEPATITIS B SURFACE [id number] 05:54:00* Test Item Value Reference Range Comments HEPATITIS B SURFACE ANTIBODY (BEAKER) (test jzby=531) 13.1 mIU/mL <8.0 HEPATITIS C [id number] 05:54:00* Test Item Value Reference Range Comments HEPATITIS C ANTIBODY (BEAKER) (test rbra=802) Nonreactive Nonreactive IRON, TIBC, % SAT. (WITHOUT FERRITIN)2019-01-13 05:37:00* Test Item Value Reference Range Comments IRON (BEAKER) (test zirw=485) 95.0 ug/dL 40.0-160.0 TOTAL IRON BINDING CAPACITY (BEAKER) (test rnqs=809) 88 ug/dL 250-450 IRON % SATURATION (2) (BEAKER) (test fmjo=1309) 108 % 20-55 SYMFP-7-[id number] 05:37:00* Test Item Value Reference Range Comments ALPHA-1 ANTITRYPSIN (BEAKER) (test inxk=710) 216.80 mg/dL 90.00-200.00 BASIC METABOLIC [id number] 04:32:00* Test Item Value Reference Range Comments SODIUM (BEAKER) (test nmzl=889) 128 meq/L 136-145 POTASSIUM (BEAKER) (test tlrv=269) 3.4 meq/L 3.5-5.1 CHLORIDE (BEAKER) (test fnlv=151) 97 meq/L 98-107 CO2 (BEAKER) (test jrvn=904) 24 meq/L 22-29 BLOOD UREA NITROGEN (BEAKER) (test xnse=257) 5 mg/dL 7-21 CREATININE (BEAKER) (test fvxb=755) 0.85 mg/dL 0.57-1.25 GLUCOSE RANDOM (BEAKER) (test eovx=665) 144 mg/dL 70-105 CALCIUM (BEAKER) (test dnbr=836) 7.3 mg/dL 8.4-10.2 EGFR (BEAKER) (test pbnl=9259) 95 mL/min/1.73 sq m ESTIMATED GFR IS NOT ACCURATE CREATININE CLEARANCE IN PREDICTING GLOMERULAR FILTRATION RATE. ESTIMATED GFR IS NOT APPLICABLE FOR DIALYSIS PATIENTS. Specimen markedly [id number] 04:26:00* Test Item Value Reference Range Comments PHOSPHORUS (BEAKER) (test ywie=560) 1.6 mg/dL 2.3-4.7 [id number] 04:26:00* Test Item Value Reference Range Comments MAGNESIUM (BEAKER) (test hccd=722) 2.3 mg/dL 1.6-2.6 HEPATIC FUNCTION [id number] 04:26:00* Test Item Value Reference Range Comments TOTAL PROTEIN (BEAKER) (test qhxh=820) 5.4 gm/dL 6.0-8.3 ALBUMIN (BEAKER) (test qndn=2542) 2.4 g/dL 3.5-5.0 BILIRUBIN TOTAL (BEAKER) (test cdjl=805) 15.1 mg/dL 0.2-1.2 BILIRUBIN DIRECT (BEAKER) (test vudg=315) 10.7 mg/dL 0.1-0.5 ALKALINE PHOSPHATASE (BEAKER) (test xvzn=778) 410 U/L 40-150 AST (SGOT) (BEAKER) (test fzqc=958) 202 U/L 5-34 ALT (SGPT) (BEAKER) (test yipq=923) 98 U/L 6-55 Specimen markedly [id number] 04:26:00* Test Item Value Reference Range Comments AMYLASE (BEAKER) (test vwaq=801) 131 U/L 25-125 Specimen markedly [id number] 04:26:00* Test Item Value Reference Range Comments LIPASE (BEAKER) (test qixj=438) 254 U/L 8-78 Specimen markedly [id number] 04:04:00* Test Item Value Reference Range Comments PARTIAL THROMBOPLASTIN TIME (BEAKER) (test wnbn=150) 133.3 seconds 22.5-36.0 LACTIC ACID, [id number] 03:59:00* Test Item Value Reference Range Comments LACTATE BLOOD VENOUS (2) (BEAKER) (test qrvw=3464) 0.8 mmol/L 0.5-2.2 Specimen slightly hemolyzed Specimen markedly ictericCBC W/PLT COUNT & AUTO [id number] 03:57:00 * Test Item Value Reference Range Comments WHITE BLOOD CELL COUNT (BEAKER) (test qidx=052) 8.1 K/ L 3.5-10.5 RED BLOOD CELL COUNT (BEAKER) (test nrup=413) 4.50 M/ L 4.63-6.08 HEMOGLOBIN (BEAKER) (test hfdp=250) 12.9 GM/DL 13.7-17.5 HEMATOCRIT (BEAKER) (test ltkj=568) 36.2 % 40.1-51.0 MEAN CORPUSCULAR VOLUME (BEAKER) (test annf=243) 80.4 fL 79.0-92.2 MEAN CORPUSCULAR HEMOGLOBIN (BEAKER) (test hvug=302) 28.7 pg 25.7-32.2 MEAN CORPUSCULAR HEMOGLOBIN CONC (BEAKER) (test brfh=339) 35.6 GM/DL 32.3-36.5 RED CELL DISTRIBUTION WIDTH (BEAKER) (test sdiy=841) 18.3 % 11.6-14.4 PLATELET COUNT (BEAKER) (test hguw=922) 57 K/CU MM 150-450 MEAN PLATELET VOLUME (BEAKER) (test hlnl=353) 10.3 fL 9.4-12.4 NUCLEATED RED BLOOD CELLS (BEAKER) (test mcjd=811) 0 /100 WBC 0-0 NEUTROPHILS RELATIVE PERCENT (BEAKER) (test iuqt=514) 81 % LYMPHOCYTES RELATIVE PERCENT (BEAKER) (test rcee=160) 12 % MONOCYTES RELATIVE PERCENT (BEAKER) (test ofcg=311) 5 % EOSINOPHILS RELATIVE PERCENT (BEAKER) (test sbfm=391) 1 % BASOPHILS RELATIVE PERCENT (BEAKER) (test rdrp=670) 1 % NEUTROPHILS ABSOLUTE COUNT (BEAKER) (test dbkz=613) 6.62 K/ L 1.78-5.38 LYMPHOCYTES ABSOLUTE COUNT (BEAKER) (test gsga=340) 0.97 K/ L 1.32-3.57 MONOCYTES ABSOLUTE COUNT (BEAKER) (test xdxh=910) 0.41 K/ L 0.30-0.82 EOSINOPHILS ABSOLUTE COUNT (BEAKER) (test amzt=336) 0.05 K/ L 0.04-0.54 BASOPHILS ABSOLUTE COUNT (BEAKER) (test kntf=837) 0.04 K/ L 0.01-0.08 IMMATURE GRANULOCYTES-RELATIVE PERCENT (BEAKER) (test xlye=0142) 1 % 0-1 PROTHROMBIN TIME/[id number] 03:49:00* Test Item Value Reference Range Comments PROTIME (BEAKER) (test ueek=560) 14.2 seconds 11.9-14.2 INR (BEAKER) (test ygyx=161) 1.2 <=5.9 Effective 11/04/2018: PT Reference Range ChangeNew: 11.9-14.2 Previous: 11.7-14. 7RECOMMENDED COUMADIN/WARFARIN INR THERAPY RANGESSTANDARD DOSE: 2.0-3.0 Include s: PROPHYLAXIS for venous thrombosis, systemic embolization; TREATMENT for venou s thrombosis and/or pulmonary embolus.HIGH RISK: Target INR is 2.5-3.5 for patie nts wiht mechanical heart valves.POCT-GLUCOSE [id number] 00:21:00* Test Item Value Reference Range Comments POC-GLUCOSE METER (BEAKER) (test smpl=3599) 148 mg/dL 70-110 TESTED AT [facility] [address] [facility] [address] BASIC METABOLIC [id number] 21:06:00* Test Item Value Reference Range Comments SODIUM (BEAKER) (test pxje=393) 126 meq/L 136-145 POTASSIUM (BEAKER) (test rpsk=368) 3.3 meq/L 3.5-5.1 CHLORIDE (BEAKER) (test nggq=164) 96 meq/L 98-107 CO2 (BEAKER) (test virs=421) 27 meq/L 22-29 BLOOD UREA NITROGEN (BEAKER) (test chsd=942) 5 mg/dL 7-21 CREATININE (BEAKER) (test lffh=557) 0.85 mg/dL 0.57-1.25 GLUCOSE RANDOM (BEAKER) (test iwms=186) 151 mg/dL 70-105 CALCIUM (BEAKER) (test jqou=930) 7.0 mg/dL 8.4-10.2 EGFR (BEAKER) (test oiuv=6651) 95 mL/min/1.73 sq m ESTIMATED GFR IS NOT ACCURATE CREATININE CLEARANCE IN PREDICTING GLOMERULAR FILTRATION RATE. ESTIMATED GFR IS NOT APPLICABLE FOR DIALYSIS PATIENTS. Specimen markedly [id number] 20:57:00* Test Item Value Reference Range Comments PHOSPHORUS (BEAKER) (test edxg=327) 2.2 mg/dL 2.3-4.7 [id number] 20:57:00* Test Item Value Reference Range Comments MAGNESIUM (BEAKER) (test whgi=893) 2.2 mg/dL 1.6-2.6 [id number] 20:48:00* Test Item Value Reference Range Comments PARTIAL THROMBOPLASTIN TIME (BEAKER) (test tncu=176) 38.2 seconds 22.5-36.0 6 hours after starting heparin infusion and as indicated per sliding scalePOCT- GLUCOSE [id number] 19:21:00* Test Item Value Reference Range Comments POC-GLUCOSE METER (BEAKER) (test qaft=2512) 147 mg/dL 70-110 TESTED AT [facility] [address] [facility] [address] BASIC METABOLIC [id number] 16:40:00* Test Item Value Reference Range Comments SODIUM (BEAKER) (test hqrb=787) 124 meq/L 136-145 POTASSIUM (BEAKER) (test xocc=023) 3.5 meq/L 3.5-5.1 CHLORIDE (BEAKER) (test szxx=477) 94 meq/L 98-107 CO2 (BEAKER) (test gxuv=869) 25 meq/L 22-29 BLOOD UREA NITROGEN (BEAKER) (test zoks=118) 5 mg/dL 7-21 CREATININE (BEAKER) (test uujf=396) 0.81 mg/dL 0.57-1.25 GLUCOSE RANDOM (BEAKER) (test fnoh=799) 158 mg/dL 70-105 CALCIUM (BEAKER) (test nbpz=020) 7.1 mg/dL 8.4-10.2 EGFR (BEAKER) (test dgkz=6475) 100 mL/min/1.73 sq m ESTIMATED GFR IS NOT ACCURATE CREATININE CLEARANCE IN PREDICTING GLOMERULAR FILTRATION RATE. ESTIMATED GFR IS NOT APPLICABLE FOR DIALYSIS PATIENTS. Specimen moderately [id number] 16:37:00* Test Item Value Reference Range Comments PHOSPHORUS (BEAKER) (test ergh=493) 1.6 mg/dL 2.3-4.7 [id number] 16:37:00* Test Item Value Reference Range Comments MAGNESIUM (BEAKER) (test jobe=881) 2.3 mg/dL 1.6-2.6 U/S, ABDOMINAL, [id number] 15:42:00Reason for exam:->elevated lft,cholecystisShould this be performed at the bedside?->YesFINAL REPORT TECHNIQUE: Grayscale ultrasound of the abdomen. INDICATION: elevated lft,cholecystis. COMPARISON: None. FINDINGS: MIDLINE VASCULATURE: The visualized inferior vena cava is patent. Portal vein is patent. The maximum visualized aortic diameter is 2.6 cm. LIVER: Diffusely increased liver echogenicity. The liver is enlarged at 18.3 cm in right hepatic lobe length. No focal lesions. The main portal vein measures 1.1 cm. BILIARY:Gallbladder: There are stones in the gallbladder neck, and the gallbladder is distended with slu dge. The gallbladder wall is thickened.Common bile duct measures 0.8 cm, within normal limits. No intrahepatic biliary ductal dilatation. PANCREAS: Incompletely visualized due to overlying bowel gas. SPLEEN: No splenomegaly. The spleen les ures 9.3 cm. PERITONEUM: Trace perihepatic ascites. KIDNEYS: Normal in size bila terally. No hydronephrosis. No sonographically evident solid mass lesion. IMPRE SSION: 1.The findings are concerning for acute cholecystitis. 2.Hepatomegaly wit h diffuse fatty infiltration of the liver. 3.Trace perihepatic ascites. Signed: Fazal Felder MDReport Verified Date/Time: 01/12/2019 15:42:36 Reading Location: [address] Radiology Reading Room -GLUCOSE [id number] 12:06:00* Test Item Value Reference Range Comments POC-GLUCOSE METER (AKER) (test dese=8199) 147 mg/dL 70-110 TESTED AT [address] [address] [id number] 11:51:00* Test Item Value Reference Range Comments PROCALCITONIN (BEAKER) (test trek=3271) 3.11 ng/mL <0.05 SEPSIS RISK (ng/mL)Low: 0.05-0.50Intermediate: 0.51-2.00High: > =2.01LACTIC ACID, [id number] 11:29:00* Test Item Value Reference Range Comments LACTATE BLOOD VENOUS (2) (BEAKER) (test fcla=6532) 1.7 mmol/L 0.5-2.2 Specimen slightly hemolyzed Specimen moderately [id number] 11:12:00* Test Item Value Reference Range Comments AMMONIA (BEAKER) (test hwog=859) 31 mol/L 18-72 TROPONIN [id number] 10:54:00* Test Item Value Reference Range Comments TROPONIN I (BEAKER) (test zfkv=348) 0.02 ng/mL 0.00-0.03 Troponin I (TnI) levels must be interpreted in the context of the presenting sym ptoms and the clinical findings. Elevated TnI levels indicate myocardial damage, but are not specific for ischemic heart disease. Elevated TnI levels are seen in patients with other cardiac conditions (including myocarditis and congestive h eart failure), and slight TnI elevations occur in patients with other conditions , including sepsis, renal failure, acidosis, acute neurological disease, and per sistent tachyarrhythmia.LIPID [id number] 10:48:00* Test Item Value Reference Range Comments TRIGLYCERIDES (BEAKER) (test ktog=210) 563 mg/dL CHOLESTEROL (BEAKER) (test rjuv=454) 414 mg/dL HDL CHOLESTEROL (BEAKER) (test rzwf=867) 7 mg/dL Calculated LDL not valid if triglyceride >400 mg/dLTriglyceride Reference Range: Low Risk <150 Borderline 150-199 High Risk 200-499 Very High Risk >=500Cholesterol Reference Range: Low Risk <200 Borderline 200-239 High Risk >240HDL Cholesterol Reference Range: Low Risk >=60 High Risk <40LDL Cholesterol Reference Range: Optimal <100 Near Optimal 100-129 Borderline 130-159 High 160-189 Very High >=190 Specimen moderately ictericHEPATIC FUNCTION [id number] 10:48:00* Test Item Value Reference Range Comments TOTAL PROTEIN (BEAKER) (test vknl=959) 5.1 gm/dL 6.0-8.3 ALBUMIN (BEAKER) (test klse=3885) 2.2 g/dL 3.5-5.0 BILIRUBIN TOTAL (BEAKER) (test lbie=452) 11.5 mg/dL 0.2-1.2 BILIRUBIN DIRECT (BEAKER) (test atah=093) 8.3 mg/dL 0.1-0.5 ALKALINE PHOSPHATASE (BEAKER) (test rltj=958) 377 U/L 40-150 AST (SGOT) (BEAKER) (test jkch=315) 216 U/L 5-34 ALT (SGPT) (BEAKER) (test vaiq=369) 105 U/L 6-55 Specimen moderately [id number] 10:48:00* Test Item Value Reference Range Comments AMYLASE (BEAKER) (test lutb=642) 159 U/L 25-125 Specimen moderately [id number] 10:48:00* Test Item Value Reference Range Comments LIPASE (BEAKER) (test fejx=293) 261 U/L 8-78 Specimen moderately [id number] 10:44:00* Test Item Value Reference Range Comments ETHANOL (BEAKER) (test jgih=969) < mg/dL <=10 COMPREHENSIVE METABOLIC [id number] 08:31:00* Test Item Value Reference Range Comments TOTAL PROTEIN (BEAKER) (test cvtp=149) 5.6 gm/dL 6.0-8.3 ALBUMIN (BEAKER) (test yewe=2055) 2.4 g/dL 3.5-5.0 ALKALINE PHOSPHATASE (BEAKER) (test okde=476) 406 U/L 40-150 BILIRUBIN TOTAL (BEAKER) (test zlpu=352) 12.2 mg/dL 0.2-1.2 SODIUM (BEAKER) (test uads=585) 124 meq/L 136-145 POTASSIUM (BEAKER) (test kpyn=021) 3.5 meq/L 3.5-5.1 CHLORIDE (BEAKER) (test lwad=249) 91 meq/L 98-107 CO2 (BEAKER) (test dioi=039) 24 meq/L 22-29 BLOOD UREA NITROGEN (BEAKER) (test yiql=389) 5 mg/dL 7-21 CREATININE (BEAKER) (test ctme=629) 0.81 mg/dL 0.57-1.25 GLUCOSE RANDOM (BEAKER) (test otbb=465) 155 mg/dL 70-105 CALCIUM (BEAKER) (test ptpm=474) 7.3 mg/dL 8.4-10.2 AST (SGOT) (BEAKER) (test sdnd=774) 240 U/L 5-34 ALT (SGPT) (BEAKER) (test semg=256) 114 U/L 6-55 EGFR (BEAKER) (test vckk=2340) 100 mL/min/1.73 sq m ESTIMATED GFR IS NOT ACCURATE CREATININE CLEARANCE IN PREDICTING GLOMERULAR FILTRATION RATE. ESTIMATED GFR IS NOT APPLICABLE FOR DIALYSIS PATIENTS. Specimen moderately [id number] 08:26:00* Test Item Value Reference Range Comments PHOSPHORUS (BEAKER) (test ykeb=168) 1.7 mg/dL 2.3-4.7 [id number] 08:26:00* Test Item Value Reference Range Comments MAGNESIUM (BEAKER) (test idgf=687) 1.9 mg/dL 1.6-2.6 [id number] 08:26:00* Test Item Value Reference Range Comments LIPASE (BEAKER) (test ngmr=875) 309 U/L 8-78 Specimen moderately ictericPROTHROMBIN TIME/[id number] 08:16:00* Test Item Value Reference Range Comments PROTIME (BEAKER) (test fdqp=976) 14.4 seconds 11.9-14.2 INR (BEAKER) (test nmkb=547) 1.2 <=5.9 Effective 11/04/2018: PT Reference Range ChangeNew: 11.9-14.2 Previous: 11.7-14. 7RECOMMENDED COUMADIN/WARFARIN INR THERAPY RANGESSTANDARD DOSE: 2.0-3.0 Include s: PROPHYLAXIS for venous thrombosis, systemic embolization; TREATMENT for venou s thrombosis and/or pulmonary embolus.HIGH RISK: Target INR is 2.5-3.5 for patie nts wiht mechanical heart valves.CBC W/PLT COUNT & AUTO [id number] 08:11:00* Test Item Value Reference Range Comments WHITE BLOOD CELL COUNT (BEAKER) (test nkyn=499) 9.8 K/ L 3.5-10.5 RED BLOOD CELL COUNT (BEAKER) (test xxzv=291) 4.72 M/ L 4.63-6.08 HEMOGLOBIN (BEAKER) (test llij=190) 13.7 GM/DL 13.7-17.5 HEMATOCRIT (BEAKER) (test yfwq=833) 37.2 % 40.1-51.0 MEAN CORPUSCULAR VOLUME (BEAKER) (test ylwc=582) 78.8 fL 79.0-92.2 MEAN CORPUSCULAR HEMOGLOBIN (BEAKER) (test orkc=016) 29.0 pg 25.7-32.2 MEAN CORPUSCULAR HEMOGLOBIN CONC (BEAKER) (test qpfa=251) 36.8 GM/DL 32.3-36.5 RED CELL DISTRIBUTION WIDTH (BEAKER) (test ccmc=871) 17.6 % 11.6-14.4 PLATELET COUNT (BEAKER) (test mass=667) 74 K/CU MM 150-450 MEAN PLATELET VOLUME (BEAKER) (test qvtp=896) 9.9 fL 9.4-12.4 NUCLEATED RED BLOOD CELLS (BEAKER) (test mnka=225) 0 /100 WBC 0-0 NEUTROPHILS RELATIVE PERCENT (BEAKER) (test zwly=578) 86 % LYMPHOCYTES RELATIVE PERCENT (BEAKER) (test phmw=378) 8 % MONOCYTES RELATIVE PERCENT (BEAKER) (test gdag=413) 5 % EOSINOPHILS RELATIVE PERCENT (BEAKER) (test sjje=055) 0 % BASOPHILS RELATIVE PERCENT (BEAKER) (test vduq=413) 0 % NEUTROPHILS ABSOLUTE COUNT (BEAKER) (test isoz=402) 8.41 K/ L 1.78-5.38 LYMPHOCYTES ABSOLUTE COUNT (BEAKER) (test opxt=522) 0.80 K/ L 1.32-3.57 MONOCYTES ABSOLUTE COUNT (BEAKER) (test osqf=529) 0.49 K/ L 0.30-0.82 EOSINOPHILS ABSOLUTE COUNT (BEAKER) (test muuu=390) 0.00 K/ L 0.04-0.54 BASOPHILS ABSOLUTE COUNT (BEAKER) (test mual=731) 0.04 K/ L 0.01-0.08 IMMATURE GRANULOCYTES-RELATIVE PERCENT (BEAKER) (test mutj=8516) 1 % 0-1 CXR 1 VEW - [id number] 04:28:00 [place] [address] Patient Name: SUSU PEDARZA MR #: [id number] : 1965 Age/Sex: 53/M Req #: [id number] Adm Physician: Ordered by: ALAYNA STODDARD MD Report #: [id number] Location: [facility] Room/Bed: Procedure: 805 HOPD/CXR 1 VEW - HOPD Exam Date: 01/12/19 Exam Time: 349 REPORT STATUS: Signed EXAMINATION: CXR 1 VIEW - HOPD INDICATION: Tachycardia. COMPARI SON: None FINDINGS: TUBES and LINES: None. LUNGS: Lungs are well inflated. Mild patchy density in the right lower lobe may represent atele ctasis. There is no evidence of pneumonia or pulmonary edema. PLEURA: No pleural effusion or pneumothorax. HEART AND MEDIASTINUM: The cardiomedias tinal silhouette is unremarkable. BONES AND SOFT TISSUES: No acute osseou s lesion. UPPER ABDOMEN: No free air under the diaphragm. IMPRES AGUSTIN: Right basilar atelectasis. Signed by: Dr. Cata Driscoll M.D. on 01/12/2019 4:37 AM Dictated By: SATURNINO DRISCOLL MD, MD Electronical ly Signed By: SATURNINO DRISCOLL MD, MD on 01/12/19436 Transcribed By: BENNETT on 01/12/19436 COPY TO: ALAYNA STODDARD MD GALL BLADDER-HOPD 2019-01-12 02:30:00 [place] [address] Patient Name: SUSU PEDRAZA MR #: [id number] : 1965 Age/Sex: 53/M Req #: [id number] Adm Physician: Ordered by: ALAYNA STODDARD MD Report #: [id number] Location: [facility] Room/Bed: Procedure: 0806 -0001 HOPD/US GALL BLADDER-HOPD Exam Date: 01/12/19 Exam Time: 0210 REPORT STATUS: Sign ed EXAM: Right Upper Quadrant Ultrasound INDICATION: Right upper jose manuel drant pain. Binge drinking. COMPARISON: None. TECHNIQUE: Transverse and carlos gitudinal images of the right upper abdomen were obtained. FINDINGS: Liver: Size: 20.2 cm in the right midclavicular line, normal Appearance: Increased echogenicity, smooth contour Mass: No focal masses Gallbladder: The gallbladder is mildly hydropic. Stones/Sludge: Small volume sludge. Wa ll: 0.4 cm, mildly thickened Appearance: No wall thickening, pericholecystic f luid or hydrops. Sonographic Swanson's Sign: Negative Bile Ducts: Intr ahepatic Ducts: No dilatation Extrahepatic Ducts: Common bile duct measures 0. 7 cm, mildly prominent. Pancreas: Visualized portions of the pancreatic h ead, neck and proximal body are normal. Kidneys: Length: Right 11.2 cm Echogenicity: Normal Collecting System: No hydronephrosis Stone: None Cyst/Mass: None Vessels: Aorta: Visualized portions are no rmal Inferior Vena Cava: Visualized portions are normal Main Portal Vein: 1. 2 cm, normal size with hepatopetal flow. Free Fluid: No ascites or pleura l effusion IMPRESSION: 1. Hydropic gallbladder with mild diffuse wall thickening, and sludge. Findings are nonspecific, however, could reflect thea cystitis in the proper clinical setting (Negative sonographic Swanson's sign). 2. Hepatomegaly and hepatic steatosis. Signed by: Dr. Cata solis M.D. on 01/12/2019 2:36 AM Dictated By: SATURNINO DRISCOLL MD, MD Electro nically Signed By: SATURNINO DRISCOLL MD, MD on 01/12/19235 Transcribed By: CHERRIE Hernandez on 01/12/19235 COPY TO: ALAYNA STODDARD MD
[2019-04-19] MEDS ORDERED: ONDANSETRON HCL INJ 2MG/ML 2ML 2 MG/ML VIAL IV STA (02:26)
[2019-04-19] MEDS ORDERED: SODIUM CHLORIDE 0.9% 1000ML 1,000 ML IV SCH ×2 (02:30→04:00)
[2019-04-19] MEDS ORDERED: MORPHINE SULFATE INJ 4 MG/ML INJ 1ML IV ONE (02:30)
[2019-04-19] MEDS ORDERED: KETOROLAC TROMETHAMINE 30 MG/ML VIAL IV STA (02:34)
[2019-04-19 03:20] LABS: BASOPHILS % 0.6 % (0.0-1.0); EOSINOPHILS # (AUTO) 0.2 (0.0-0.4); EOSINOPHILS % 2.9 % (0.0-6.0); HEMATOCRIT 42.3 % (38.2-49.6); HEMOGLOBIN 14.8 g/dL (14.0-18.0); LYMPHOCYTES # (AUTO) 1.8 (1.0-3.2); LYMPHOCYTES % 35.9 % (18.0-39.1); MEAN CORPUSCULAR HEMOGLOBIN 29.7 pg (28-32); MEAN CORPUSCULAR VOLUME 84.8 fL (81-99); MONOCYTES # (AUTO) 0.5 (0.2-0.8); MONOCYTES % 9.4 % (4.4-11.3); NEUTROPHILS # (AUTO) 2.6 (2.1-6.9); PLATELET COUNT 268 x10e3/uL (140-360); RED BLOOD COUNT 4.99 x10e6/uL (4.3-5.7); RED CELL DISTRIBUTION WIDTH 11.8 % (11.7-14.4)
[2019-04-19 03:37] LABS: ALANINE AMINOTRANSFERASE 42 IU/L (0-55); ALBUMIN 4.2 g/dL (3.5-5.0); ALBUMIN/GLOBULIN RATIO 1.1 (0.8-2.0); ALKALINE PHOSPHATASE 64 IU/L (40-150); ANION GAP 13.5 mmol/L (8-16); BLOOD UREA NITROGEN 7 mg/dL (7-26); BUN/CREATININE RATIO 9 (6-25); CALCIUM 9.6 mg/dL (8.4-10.2); CARBON DIOXIDE 26 mmol/L (22-29); CHLORIDE 104 mmol/L (98-107); CREATINE KINASE 254 IU/L (30-200); CREATININE, SERUM 0.82 mg/dL (0.72-1.25); EST GLOMERULAR FILTRATION RATE > 60 ML/MIN (60-); GLUCOSE 118 mg/dL (74-118); POTASSIUM 3.5 mmol/L (3.5-5.1); SODIUM 140 mmol/L (136-145)
[2019-04-19 03:51] LABS: AMPHETAMINES SCREEN,URINE NEGATIVE (NEGATIVE); BENZODIAZEPINES SCREEN,URINE NEGATIVE (NEGATIVE); PHENCYCLIDINE SCREEN,URINE NEGATIVE (NEGATIVE)
[2019-04-19] MEDS ORDERED: SODIUM CHLORIDE 0.9% 50ML 50 ML ONE (04:00)
[2019-04-19] MEDS ORDERED: IOPAMIDOL 370 MG/ML 200 ML INFUS..BTL INJ ONE (04:01)
--- NOTE | 2019-04-19 05:12 | Diagnostic Imaging Report ---
EXAM: CT Abdomen and Pelvis WITH contrast INDICATION: Right upper quadrant abdominal pain. COMPARISON: Right upper quadrant ultrasound 01/12/2019. TECHNIQUE: Abdomen and pelvis were scanned utilizing a multidetector helical scanner from the lung base to the pubic symphysis after administration of IV contrast. Coronal and sagittal reformations were obtained. Routine protocol was performed. Scan was performed when during portal venous phase. IV CONTRAST: 100 cc of Isovue-[id number] ORAL CONTRAST: Water COMPLICATIONS: None RADIATION DOSE: Total DLP: (DLP x 0.015 x size factor) mGy*cm Estimated effective dose: (DLP x 0.015 x size factor) mSv CTDIvol has been reviewed. It is below the limits set by the Radiation Protocol Committee (RPC). FINDINGS: LINES and TUBES: None. LOWER THORAX: Unremarkable HEPATOBILIARY: Diffuse mild hepatic steatosis. No evidence of focal lesion. The CBD is dilated measuring up to 1.1 cm. Mild left intrahepatic biliary ductal dilatation. GALLBLADDER: Mildly distended gallbladder with cholelithiasis. No evidence of wall thickening or pericholecystic fluid. SPLEEN: No splenomegaly. PANCREAS: No focal masses or ductal dilatation. ADRENALS: No adrenal nodules KIDNEYS/URETERS: Kidneys enhance symmetrically. No evidence of hydronephrosis, solid mass, or stone. GI TRACT: No evidence of wall thickening or distension. Appendix is normal. There is a 0.7 cm metal density which may represent a clip which is in the duodenum adjacent to the ampulla. PELVIC ORGANS/BLADDER: The prostate is enlarged, measuring up to 5.4 cm. LYMPH NODES: No lymphadenopathy. VESSELS: Scattered mild atherosclerotic calcifications in the abdominal aorta and branch vessels. PERITONEUM / RETROPERITONEUM: No free air or fluid. BONES AND SOFT TISSUES: Unremarkable. CONCLUSION: Distended gallbladder and cholelithiasis without CT evidence of cholecystitis. Dilated CBD, measuring up to 1.1 cm with associated mild left intrahepatic biliary ductal dilatation. There is a metal clip in the duodenum near the ampulla. Recommend correlation with prior procedural history. If clinically indicated, MRCP can be performed to evaluate for choledocholithiasis. Signed by: Dr. Kim Day MD on 04/19/2019 5:09 AM
[2019-04-19] MEDS ORDERED: ZOFRAN4 MG SL (05:33)
[2019-04-19] MEDS ORDERED: ULTRAM50 MG PO (05:33)
== END 2019-04-19 05:53 | disposition home or self-care (01) ==
LOC: ER 02:19
DX: R10.11 Right upper quadrant pain (principal); R11.0 Nausea; K80.00 Calculus of gallbladder with acute cholecystitis without obstruction
CPT/HCPCS: 36415; 74177; 80053; 80307; 82550; 82553; 83690; 84484; 85025; 96374; 96375; 99284; J1885; J2270; J2405; J7030; Q9967